=== PATIENT | male | born 1960 | race Caucasian/White ===

== ENCOUNTER → 2017-02-03 | Outpatient (CLI) | payer BC ==
[~2017-02-03] MED LIST: REGADENOSON 0.4 MG/5 ML DISP.SYRIN. IV ONE
--- NOTE | 2017-02-05 10:10 | PCVCIMAG ---
APPROVED REPORT Study performed: 02/03/2017 07:51:12 EXAM: Comprehensive 2D, Doppler, and color-flow Echocardiogram Patient Location: Echo lab Room #: 2Status: routine BSA: 1.94 HR: 65 bpmBP: 138/86 mmHg Rhythm: NSR Other Information Study Quality: Good Risk Factors: Cardiac Risk Factors: Hyperlipidemia,evevated cor Ca+ score Indications Dyspnea 2D Dimensions LVEF(%): 50.89 (>50%) IVSd: 8.68 (7-11mm)LVOT Diam: 20.11 (18-24mm) LVDd: 52.96 mm PWd: 5.59 (7-11mm)Ascending Ao: 29.41 (22-36mm) LVDs: 39.11 (25-40mm) Left Atrium: 32.83 (27-40mm) Aortic Root: 21.88 mm LV Single Plane 4CH: 53.51 % LV Single Plane 2CH: 60.20 %Huff's LVEF: 56.85 % Biplane EF: 59.1 % Volumes Left Atrial Volume (Systole) Single Plane 4CH: 32.81 mLSingle Plane 2CH: 34.25 mL Biplane LA Volume: 34.00 mLLA ESV Index: 18.00 mL/m2 Aortic Valve AoV Peak Lex.: 1.12 m/s AO Peak Gr.: 5.05 mmHgLVOT Max P.21 mmHg LVOT Max V: 1.03 m/s FRAN Vmax: 2.90 cm2 Mitral Valve E/A Ratio: 0.8 MV Decel. Time: 196.13 ms MV E Max Lex.: 0.47 m/s MV A Lex.: 0.62 m/s TDI E/Lateral E': 5.22E/Medial E': 5.88 Medial E' Lex.: 0.08 m/s Lateral E' Lex.: 0.09 m/s Pulmonary Vein P Vein S: 0.62 m/sP Vein A: 0.31 m/s P Vein D: 0.48 m/sP Vein A Dur.: 84.8 msec P Vein S/D Ratio: 1.29 Tricuspid Valve TR Peak Lex.: 2.14 m/s TR Peak Gr.: 18.28 mmHg TV Vmax: 0.52 m/sPA Pressure: 25.00 mmHg Left Ventricle The left ventricle is normal size. There is normal LV segmental wall motion. There is normal left ventricular wall thickness. Left ventricular systolic function is normal. The left ventricular ejection fraction is within the normal range. LVEF is 55-60%. Grade I - abnormal relaxation pattern. Right Ventricle The right ventricle is normal size. The right ventricular systolic function is normal. Atria The left atrium size is normal. The right atrium size is normal. Aortic Valve The aortic valve is normal in structure. No aortic regurgitation is present. There is no aortic valvular stenosis. Mitral Valve The mitral valve is normal in structure. There is no mitral valve regurgitation noted. No evidence of mitral valve stenosis. Tricuspid Valve The tricuspid valve is normal in structure. Mild tricuspid regurgitation with a PA pressure of 25mmHg. Pulmonic Valve The pulmonary valve is normal in structure. There is no pulmonic valvular regurgitation. Great Vessels The aortic root is normal in size. The ascending aorta is normal in size. IVC is normal in size and collapses with >50% inspiration Pericardium There is no pericardial effusion. There is no pleural effusion. <Conclusion> The left ventricle is normal size. LVEF is 55-60%. The aortic valve is normal in structure. The mitral valve is normal in structure. There is no mitral valve regurgitation noted. The tricuspid valve is normal in structure. Mild tricuspid regurgitation with a PA pressure of 25mmHg. The pulmonary valve is normal in structure. There is no pericardial effusion.
--- NOTE | 2017-02-05 18:28 | PCVCIMAG ---
APPROVED REPORT Exam: Nuclear Stress Test Indication: Chest pain, Dyspnea Patient Location: Out-Patient Stress Nurse: Shanice Blackwell RN, Aster Ernst RN DE Tech:Shiloh Pichardomariaa [facility] Ht: 5 ft 8 in Wt: 177 lbs BSA: 1.94 m2 HR: 73 bpm BP: 162/99 mmHg BMI: 26.9 Rhythm: NSR Medical History Medical History: CAD, Age, High Ca Score Medications: Atorvastatin Allergies: No known drug allergies Pretest Chest Pain Characteristics: No chest pain Exercise History: Physically active Physical Disabilities: Neck, shoulders NM EXAM: Myocardial Perfusion REST/STRESS Imaging Protocol: Rest Tc-99m/Stress Tc-99m 1 day Resting Data Rest SPECT myocardial perfusion imaging was performed in supine position 45 minutes following the intravenous injection of 10.4 mCi of Tc-99m Sestamibi. Time of rest injection: 829 Date: 02/03/2017 Administration Route: IV Administration Site: Left AC Pharmacologic Stress Pharmacologic stress test was performed by injecting Regadenoson 0.4 mg IV push followed by the intravenous injection of 33.9 mCi of Tc-99m Sestamibi. Time of stress injection: 944 Date: 02/03/2017 Administration Route: IV Administration Site: Left AC Gated Stress SPECT was performed 45 minutes after stress injection. The images were gated to evaluate regional wall motion and calculate left ventricular ejection fraction. Study Data Post stress, the left ventricular ejection was 73%.. SSS: 0 SRS: 0 SDS: 0 TID = 1.04. Perfusion There is a medium area of moderately reduced uptake in the apical segment of the anterior wall which is seen on the stress images and improves on the resting images. This area thickens and moves normally and is most consistent with attenuation artifact. Wall Motion Normal left ventricular wall motion. Nuclear Conclusion 1. INTERMEDIATE RISK STUDY DUE TO PARTIAL REVERSIBILITY OF ANTEROAPICAL WALL Interpreted by: Sara Pozo MD Electronically Approved: 02/05/2017 18:27:49 Stress Test Details Stress Test: Pharmacologic stress was paired with low level exercise. Reason for pharmacologic stress test: physical limitation. HR Resting HR: 73 bpmMax Heart Rate (APMHR): 162 bpm Max HR Achieved: 115 bpmTarget HR (85% APMHR): 137 bpm % of APMHR: 70 Recovery HR: 79 bpm BP Resting BP: 162/99 mmHg Max BP: 168/96 mmHg ECG Resting ECG: Sinus Rhythm Stress ECG: Sinus Tachycardia Recovery ECG: Sinus Rhythm Clinical Reason for Termination: Completed protocol Stress Symptoms: None Exercise duration: 4 min 00 sec Exercise capacity: 1.6 METs Stress ECG Conclusion 1. ADEQUATE RESPONSE TO IV LEXISCAN 2. INADEQUATE HEART RATE FOR ECG DIAGNOSIS <Conclusion> 1. ADEQUATE RESPONSE TO IV LEXISCAN 2. INADEQUATE HEART RATE FOR ECG DIAGNOSIS
== END | disposition home or self-care (01) ==
LOC: PCVCIMAG 07:45
PROVIDERS: ATTEND Internal Medicine
DX: I07.1 Rheumatic tricuspid insufficiency (principal); R06.00 Dyspnea, unspecified; E83.59 Other disorders of calcium metabolism; E78.5 Hyperlipidemia, unspecified; R07.9 Chest pain, unspecified
CPT/HCPCS: 78452; 93017; 93306; A9500; J2785